=== PATIENT | male | born 1945 | race Caucasian/White ===

== ENCOUNTER → 2016-10-27 | Outpatient (CLI) | payer MEDICARE, BC ==
[~2016-10-27] MED LIST: METO50TA PO
--- NOTE | 2016-10-28 20:15 | HM ---
Date Performed: 10/27/2016 Time Performed: 08:42:00 HOOKUP DATE: 10/27/16 08:42:00 AM Mon ANALYSIS START TIME: 10/27/2016 8:47:00 AM ANALYSIS END TIME: 10/28/2016 7:11:49 AM PATIENT AGE: 71 PATIENT HEIGHT PATIENT WEIGHT DRUG LIST PATIENT DIAGNOSIS: palpitations TEST NARRATIVE: The patient's average heart rate was 56 BPM. No episodes of tachycardia wer e noted. Heart rates less than 50 BPM were noted 34% of the time. No pauses exceeding 2.0 second s were noted. 20 ventricular ectopics, which represented < 1% of the total beat count, were noted . The highest ventricular ectopic frequency occurred from 11:00 PM to 12:00 AM Tue. During this jay e 5 VE(s) occurred. Ventricular ectopics were observed as 20 isolated beat(s) only. No couplets or runs were noted. 88 supraventricular ectopics, which represented < 1% of the total beat count, we re noted. The highest supraventricular ectopic frequency occurred from 07:00 PM to 08:00 PM Mon. Du ring this time 16 SVE(s) occurred. No episodes of ST depression (defined as -1.0 mm or more) were noted in channel 1. No episodes of ST depression (defined as -1.0 mm or more) were noted in channel 2. No episodes of ST depression (defined as -1.0 mm or more) were noted in channel 3. TEST INTERPRETATION: Sinus rhythm PACs PVCs Brief runs of nonsustained atrial tachycardia Signed by : Justen Pearson
== END ==
LOC: HCAV 08:23
PROVIDERS: ATTEND Allergy & Immunology
DX: R00.2 Palpitations (principal)
CPT/HCPCS: 93225; 93226